=== PATIENT | female | born 1950 | race Caucasian/White ===

== ENCOUNTER 2017-05-19 10:42 | Emergency (ER) | payer MEDICARE ==
[~2017-05-19] VITALS: Ht 154.9 cm; Wt 66.0 kg
[2017-05-19 11:12] LABS: GLUCOSE,POINT OF CARE 139 MG/DL (70-110)
[2017-05-19] MEDS ORDERED: ASPI81 PO (11:14)
[2017-05-19] MEDS ORDERED: LEVO75 PO (11:14)
[2017-05-19] MEDS ORDERED: ATOR40TA28 PO (11:14)
[2017-05-19] MEDS ORDERED: GLIP10 PO (11:14)
[2017-05-19] MEDS ORDERED: METF500T7 PO (11:14)
[2017-05-19] MEDS ORDERED: LOSA50TA37 PO (11:14)
[2017-05-19 11:53] VITALS: BP 134/78
== END 2017-05-19 13:01 | disposition home or self-care (01) ==
LOC: EMS 10:43
DX: I10 Essential (primary) hypertension (principal); E11.9 Type 2 diabetes mellitus without complications; E78.00 Pure hypercholesterolemia, unspecified; E03.9 Hypothyroidism, unspecified; Z76.0 Encounter for issue of repeat prescription
CPT/HCPCS: 82962; 99283